=== PATIENT | male | born 1950 | race Two or more races ===

== ENCOUNTER 2016-09-14 18:17 | Inpatient (IN) | payer MEDICARE, OTHER ==
[~2016-09-14] VITALS: Ht 165.1 cm; Wt 72.7 kg
--- NOTE | 2016-09-14 18:20 | NUR ---
CALLED CODE STROKE
--- NOTE | 2016-09-14 18:23 | NUR ---
CALLED [facility] TELE STROKE LINE, EXPECTING CALL BACK FROM NEUROLOGIST DR MACKAY
--- NOTE | 2016-09-14 18:25 | NUR ---
EKG DONE AT . IV ACCESS STARTED. BLOOD DRAWN FOR LABS.
--- NOTE | 2016-09-14 18:27 | NUR ---
PT TAKEN TO CT.
--- NOTE | 2016-09-14 18:30 | NUR ---
accu ck 195
--- NOTE | 2016-09-14 18:30 | NUR ---
pt sent to ct with patt donadl
[2016-09-14 18:35] LABS: BASOPHILS % (AUTO) 0.4 % (0.0-2.0); EOSINOPHILS % (AUTO) 0.2 % (0.0-6.0); HEMATOCRIT 40 % (39-51); HEMOGLOBIN 13.4 g/dL (13.5-17.5); LYMPHOCYTES # (AUTO) 1.3 /CMM (0.8-4.8); LYMPHOCYTES % (AUTO) 11.3 % (20.0-44.0); MEAN CORPUSCULAR HEMOGLOBIN 30 PG (26.0-33.0); MEAN CORPUSCULAR HGB CONC 33 g/dl (31.0-36.0); MEAN CORPUSCULAR VOLUME 89 fL (80-96); MONOCYTES # (AUTO) 0.6 /CMM (0.1-1.30); MONOCYTES % (AUTO) 5.4 % (2.0-12.0); NEUTROPHILS # (AUTO) 9.2 /CMM (1.8-8.9); NEUTROPHILS % (AUTO) 82.7 % (43.0-81.0); PLATELET COUNT (AUTO) 227 /CMM (150-450); RDW COEFFICIENT OF VARIATION 13.5 (11.5-15.0); WHITE BLOOD COUNT (AUTO) 11.1 K/uL (4.3-11.0)
--- NOTE | 2016-09-14 18:45 | NUR ---
PAGED A PROVIDER FROM [facility]. PER CAREGIVER HE IS UNDER THEIR CARE.
--- NOTE | 2016-09-14 18:46 | NUR ---
back to bed pt still non verbal monitors applied tried to insertt de la cruz
--- NOTE | 2016-09-14 18:47 | NUR ---
SPOKE TO SOIL SCIENCE PROFESSOR JOSELO THOMPSON WITH [facility]. SHE STATES PATIENT HAD A PREVIOUS CEREBRAL INFARCTION WITH UNKNOWN DATE. PT APPEARS TO BE A FULL CODE BUT SHE WILL HAVE SOMEONE CALL BACK WITH MORE DETAILED INFORMATION
--- NOTE | 2016-09-14 18:50 | NUR ---
TELE NEURO AT BS FOR EVAL. WITH DR. EDMOND AT [facility]. PT STILL UNTESTABLE.
[2016-09-14 18:51] LABS: ALANINE AMINOTRANSFERASE 16 U/L (12-78); ALBUMIN 3.4 g/dL (3.4-5.0); ALKALINE PHOSPHATASE 69 U/L (46-116); ASPARTATE AMINOTRANSFERASE 15 U/L (15-37); BILIRUBIN,DIRECT 0.1 mg/dL (0.0-0.2); BILIRUBIN,TOTAL 0.4 mg/dL (0.2-1.0); CALCIUM, SERUM 8.9 mg/dL (8.5-10.1); CARBON DIOXIDE 26 mmol/L (21-32); CHLORIDE 105 mmol/L (98-107); CREATININE 1.3 mg/dL (0.6-1.3); GLUCOSE 195 mg/dL (74-106); POTASSIUM 4.5 mmol/L (3.5-5.1); SODIUM SERUM 141 mmol/L (136-145); TOTAL PROTEIN, SERUM 6.5 g/dL (6.4-8.2); UREA NITROGEN, BLOOD 13 mg/dL (7-18)
[2016-09-14 18:52] LABS: TROPONIN I 0.028 ng/mL (0.00-0.056)
[2016-09-14 18:54] LABS: INR 1.02 (0.87-1.13); PROTHROMBIN TIME 10.6 SECS (9.5-12.7)
--- NOTE | 2016-09-14 18:59 | NUR ---
de la cruz cathh inseted slight light pink drainage from insertion to gravity ua sent to lab
--- NOTE | 2016-09-14 19:00 | NUR ---
lpt lives in hospice new to fac was non veral after 2 hours nurses say pt is full code
--- NOTE | 2016-09-14 19:02 | NUR ---
SPOKE WITH JOSÉ MIGUEL PRINTING MACHINE OPERATOR WITH [facility], TRANSFERRED CALL TO MARGARITO ALLEN
--- NOTE | 2016-09-14 19:04 | NUR ---
[facility] [id number] [phone] was told sugar range [id number] normal for pt
[2016-09-14] MEDS ORDERED: IV NS 0.9% 1,000 ML BAG IV ONE ×2 (19:30→20:00)
[2016-09-14] MEDS ORDERED: ASPIRIN 300 MG/SUPP.RECT RC ONE ×2 (19:30→19:38)
[2016-09-14 19:42] LABS: APPEARANCE,URINE Clear (CLEAR); BILIRUBIN,URINE Negative (NEGATIVE); BLOOD, URINE Moderate Ery/uL (NEGATIVE); COLOR,URINE Yellow (YELLOW); KETONES,URINE Negative (NEGATIVE); LEUKOCYTE ESTERASE ,URINE Small (NEGATIVE); NITRITE, URINE Positive (NEGATIVE); PROTEIN,URINE 30 mg/dl (NEGATIVE); UGLUCOSE Negative (NEGATIVE)
[2016-09-14 20:10] LABS: BACTERIA,URINE Moderate /HPF (None Seen); SQUAMOUS EPITHELIAL CELL,UR Few /HPF (None Seen); URINE AMORPHOUS URATE Moderate /HPF (None Seen)
--- NOTE | 2016-09-14 20:14 | NUR ---
spoke with Kori, patient's brother, and he said to he needs to be informed when the patient is admitted and to which floor and what number to call. Kori's contact number is [phone].
--- NOTE | 2016-09-14 20:28 | NUR ---
CALLED NURSING RESOURCE CONSERVATION SPECIALIST FOR [facility] BED
[2016-09-14] MEDS ORDERED: PIPERACILLIN /TAZOBACTAM 3.375 G VIAL IV ONE (20:30)
[2016-09-14] MEDS ORDERED: PIPERACILLIN /TAZOBACTAM 3.375 G in IV D5W 50 ML IV ONE (20:30)
--- NOTE | 2016-09-14 21:08 | NUR ---
SPOKE WITH KESHIA GUERRERO AT [facility] AND SHE SAID, THEY DONT HAVE A LIST OF MEDICATIONS FOR THIS PATIENT.
--- NOTE | 2016-09-14 21:20 | NUR ---
Report given to Monet ALLEN for [facility] admission and daniella.
--- NOTE | 2016-09-14 21:24 | NUR ---
spoke to Kori, the brother, updated him with transfer info to [facility] and he said the patient is full code.
--- NOTE | 2016-09-14 21:36 | NUR ---
Transferred patient to [facility] floor via [facility] protocol, no incident noted.
--- NOTE | 2016-09-14 21:40 | NUR ---
GUERDA RN OPENING NOTES: RECEIVED PT FROM ER VIA GURNEY, OBTUNDED, RETRACTS TO PAIN; APHASIC, MAKES INCOMPREHENSIBLE SOUNDS AND UNABLE TO FOLLOW COMMANDS; ON O2 THERAPY, NOT IN APPARENT DISTRESS. ST ON MONITOR HR AT 119 BPM. ALLOWED PERMISSIVE HYPERTENSION. IV ACCESS ON RAC G18 AND LFA G18 BOTH PATENT AND INTACT. SKIN CHECK DONE VERIFIED WITH RICKY ALLEN. PHOTODOCUMENTATION FILED. NOTED WITH CARY BLEEDING FROM [facility], REPORTED FROM ER POSSIBLY D/T RODRIGUEZ INSERTION. RODRIGUEZ TO A CLOSED SYSTEM VIA GRAVITY WITH CLEAR ORANGE URINE, WITHOUT BLOOD CLOTS NOTED. UNABLE TO PERFORM NURSE BEDSIDE SWALLOW SCREEN PATIENT TOO ALTERED TO FOLLOW COMMANDS. NIHSS ASSESSMENT DONE. SCORE CHARTED. SAFETY MEASURES ENSURED AT ALL TIMES. CONTINUOUSLY MONITORED ACCORDINGLY.
[2016-09-14 21:52] VITALS: BP 169/106
--- NOTE | 2016-09-14 22:00 | NUR ---
RN NOTES: MARINA OSULLIVAN IN, SEEN AND EXAMINED PATIENT. WITH ORDERS TO DO FREQUENT NEURO ASSESSMENTS Q1H. AWARE ABOUT HYPERTENSIVE STATE, ALLOWED PERMISSIVE HYPERTENSION. PENDING ADMISSION ORDERS. TO NOTE AND CARRIED OUT. CONTINUOUSLY MONITORED PATIENT.
[2016-09-14 23:00] VITALS: BP 158/92
--- NOTE | 2016-09-14 23:00 | NUR ---
RN NOTES: SPOKE TO PATIENT;S BROTHER LEIDA, AND OBTAINED CONSENT FOR CTA OF BRAIN AND NECK AND CAROTID, TELEPHONE CONSENT VERIFIED WITH ELIEZER BUTLER RN. PER LEIDA, PATIENT SHOULD REMAIN FULL CODE UNTIL FAMILY WOULD TALK AND DECIDE. OF NOW LEIDA IS THE PERSON TO NOTIFY HE CAN BE REACHED THROUGH THIS NO. [phone]. PER LEIDA PATIENT HAS NO KNOWN ALLERGY. LEIDA UNAWARE OF PATIENT;S HOME MEDS. TO FOLLOW UP IN AM WITH CAREGIVER RE MEDS FOR MED RECON. [address] VIA ACLS TRANSPORT ASSISTED PATIENT BACK AND FORTH. PATIENT NOT IN DISTRESS DURING PROCEDURE.
[2016-09-15] VITALS: BP 158/92
[2016-09-15] MEDS ORDERED: IOHEXOL-350 100 ML VIAL IV ONE (00:05)
[2016-09-15] MEDS: BLOOD SUGAR DIAGNOSTIC 1 EACH STRIP IN SCH ×4 (00:51→17:08)
[2016-09-15] MEDS: IV NS 0.9% 1,000 ML IV PRN ×2 (00:51→11:36)
[2016-09-15] MEDS ORDERED: PIPERACILLIN /TAZOBACTAM 3.375 G VIAL IV ONE ×2 (01:15→05:47)
[2016-09-15] MEDS: PIPERACILLIN /TAZOBACTAM 3.375 G in IV D5W 50 ML IV SCH ×4 (01:17→17:10)
--- NOTE | 2016-09-15 03:30 | NUR ---
RN NOTES: CALLED [facility] SALES FACILITATOR MARINA WOODWARD NP RE CTA RESULTS. AND INFORMED HIM THAT PER RADIOLOGY MRI OF BRAIN WO CONTRAST STAT WILL NOT BE DONE UNTIL 10 AM OF TODAY. NNO AT THIS TIME.
[2016-09-15 04:00] VITALS: BP 178/88
[2016-09-15 06:36] LABS: BASOPHILS % (AUTO) 0.3 % (0.0-2.0); EOSINOPHILS % (AUTO) 0.4 % (0.0-6.0); HEMATOCRIT 35 % (39-51); HEMOGLOBIN 12.1 g/dL (13.5-17.5); LYMPHOCYTES # (AUTO) 2.2 /CMM (0.8-4.8); LYMPHOCYTES % (AUTO) 22.1 % (20.0-44.0); MEAN CORPUSCULAR HEMOGLOBIN 31 PG (26.0-33.0); MEAN CORPUSCULAR HGB CONC 34 g/dl (31.0-36.0); MEAN CORPUSCULAR VOLUME 90 fL (80-96); MONOCYTES # (AUTO) 0.8 /CMM (0.1-1.30); MONOCYTES % (AUTO) 8.4 % (2.0-12.0); NEUTROPHILS # (AUTO) 6.9 /CMM (1.8-8.9); NEUTROPHILS % (AUTO) 68.8 % (43.0-81.0); PLATELET COUNT (AUTO) 200 /CMM (150-450); RDW COEFFICIENT OF VARIATION 14.6 (11.5-15.0); RED BLOOD CELL COUNT(AUTO) 3.94 MIL/uL (4.5-6.0); WHITE BLOOD COUNT (AUTO) 10.1 K/uL (4.3-11.0)
--- NOTE | 2016-09-15 06:46 | NUR ---
TEXTED DR. CLANCY FOR MRI APPROVAL.,
--- NOTE | 2016-09-15 06:47 | NUR ---
TEXTED BACK, ON HOLD FOR NOW, HE WILL LET US KNOW.
--- NOTE | 2016-09-15 06:48 | NUR ---
RN CLOSING NOTES: PATIENT REMAINED ON BED NOT IN APPARENT DISTRESS NO FURTHER DECLINE NOTED. KEPT ON O2 THERAPY. REMAINED ST ON MONITOR ON 105 BPM. AM LABS DONE, RESULTS PENDING. ACCUCHECKS WNL. SAFETY MEASURES ENSURED. TO ENDORSE TO AM SHIFT RN.
[2016-09-15 07:00] LABS: CREATININE 0.8 mg/dL (0.6-1.3); POTASSIUM 3.7 mmol/L (3.5-5.1)
[2016-09-15 07:22] LABS: THYROID STIMULATING HORMONE 0.969 uIU/mL (0.358-3.74)
[2016-09-15] MEDS ORDERED: BLOOD SUGAR DIAGNOSTIC 1 EACH STRIP IN SCH (07:30)
[2016-09-15] MEDS: PANTOPRAZOLE 40 MG TABLET.DR PO SCH (07:30)
[2016-09-15 08:00] VITALS: BP 179/87
--- NOTE | 2016-09-15 09:30 | NUR ---
DIGITAL ARTISTRaji WOODWARD ANNUAL GIVING MANAGER AT BEDSIDE. ASKED ANNUAL GIVING MANAGER REGARDING THE FOLLOWIN) PT'S LDH WAS 82. PER ANNUAL GIVING MANAGER, WILL ORDER STATIN ONCE PT ABLE TO TAKE ORAL INTAKE (PT STILL NPO), 2) NEUROCHECKS ORDERED Q1H. PER ANNUAL GIVING MANAGER, NEUROCHECK Q1H FOR 24 HOURS ONLY FROM START OF ADMISSION, AND 3) CHEMICAL DVT PROPHYLAXIS. PER ANNUAL GIVING MANAGER, ASK DR. ROONEY WHETHER CHEMICAL PROPHYLAXIS NEEDS TO BE ORDERED ON PT. WILL CONTINUE TO MONITOR.
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
--- NOTE | 2016-09-15 10:52 | NUR ---
MRI APPROVED.PATIENT HAD SHOULDER SURGERY AND DON'T KNOW WHAT HARDWARE WAS USED IF IT'S MRI COMPATABLE. THEY (NURSE) ARE LOOKING INTO IT.
--- NOTE | 2016-09-15 11:31 | NUR ---
WOUND CARE CONSULT FOR [place] OF 12-CONTRACTS OFFICER UNABLE TO SEE AND PERFORM FULL SKIN ASSESSMENT AT THIS TIME PER NURSING PATIENT WITH EMESIS. WILL SEE AT LATER TIME PATIENT CONDITION PERMITS. ALL PRESSURE ULCER PREVENTION MEASURES NOTED TO BE IN PLACE PER CURRENT PLAN OF CARE.
[2016-09-15 12:00] VITALS: BP 120/80
--- NOTE | 2016-09-15 13:00 | NUR ---
RN NOTE- UNABLE TO OBTAIN MED RECON FOR PATIENT. CONTACT FAMILY MEMBERS AND ATTEMPTED TO CONTACT PT'S BOARD & CARE, UNSUCCESSFUL. PHARMACY AWARE. WILL CONTINUE TO MONITOR.
[2016-09-15] MEDS: IV 1/2NS 1000 ML 1,000 ML IV PRN (13:37)
[2016-09-15] MEDS: ONDANSETRON HCL/PF 4 MG/2 ML VIAL IV PRN (15:26)
[2016-09-15 16:00] VITALS: BP 195/105
[2016-09-15] MEDS: ASPIRIN 300 MG/SUPP.RECT RC SCH (17:05)
[2016-09-15 20:00] VITALS: BP 158/93
--- NOTE | 2016-09-15 20:00 | NUR ---
RN NOTE PT IN BED SUPINE WITH EYES OPEN, MUMBLES. RESPONDS TO NAME. UNABLE TO MOVE RT SIDE OF EXT'S. ABLE TO MOVE SLIGHTLY LT SIDE UPPER AND LOWER. NO DISTRESS OR DISCOMFORT NOTED. NO S/S OF PAIN NOTED. IVF 1/2 NS INFUSING AT 75 ML/HR, NO S/S OF INFILTRATION NOTED. F/C INTACT AND PATENT DRAINING YELLOWISH COLOR URINE. REPOSITION HIM Q2H. SIDE RAILS UP X 3 AND CALL LIGHT WITHIN REACH. VSS. CONTINUE TO MONITOR HIM.
[2016-09-16] VITALS (9 sets, daily range): BP systolic 108–189; BP diastolic 64–100
[2016-09-16] MEDS: BLOOD SUGAR DIAGNOSTIC 1 EACH STRIP IN SCH ×4 (00:26→18:19)
[2016-09-16] MEDS: PIPERACILLIN /TAZOBACTAM 3.375 G in IV D5W 50 ML IV SCH ×4 (00:26→18:19)
[2016-09-16] MEDS ORDERED: hydrALAZINE HCL IV 20 MG VIAL ONE (05:20)
--- NOTE | 2016-09-16 05:22 | NUR ---
RN NOTE JAZZ OSULLIVAN INFORMED PT B/P IS HIGH. NEW ORDER RECEIVED, ORDER NOTED AND CARRIED OUT.
[2016-09-16] MEDS: hydrALAZINE HCL IV 20 MG VIAL IV PRN (05:25)
--- NOTE | 2016-09-16 05:45 | NUR ---
RN NOTE PT VOMITED X 2 LIGHT BLOODY FLUIDS 100 ML APPROXIMATE. ZOFRAN 4 MG IVP GIVEN. CONTINUE TO MONITOR HIM. .
[2016-09-16] MEDS: ONDANSETRON HCL/PF 4 MG/2 ML VIAL IV PRN (05:50)
--- NOTE | 2016-09-16 06:34 | NUR ---
RN NOTE PT IN BED AWAKE. FOLLOWS COMMAND. N/V SUBSIDED. B/P ALSO CAME DOWN TO 98/42. NO FURTHER DISCOMFORT NOTED. DENIES PAIN. F/C INTACT AND PATENT DRAINING YELLOWISH COLOR URINE. ON TELE SR 88. IVF INFUSING WELL, NO S/S OF INFILTRATION NOTED. SIDE RAILS UP X 2 AND CALL LIGHT WITHIN REACH. WILL ENDORSE TO DAY SHIFT NURSE FOR CONTINUE TO CARE.
[2016-09-16 06:40] LABS: BASOPHILS % (AUTO) 0.4 % (0.0-2.0); EOSINOPHILS # (AUTO) 0.1 /CMM (0.0-0.7); EOSINOPHILS % (AUTO) 0.6 % (0.0-6.0); HEMATOCRIT 38 % (39-51); LYMPHOCYTES # (AUTO) 2.1 /CMM (0.8-4.8); LYMPHOCYTES % (AUTO) 17.4 % (20.0-44.0); MEAN CORPUSCULAR HEMOGLOBIN 31 PG (26.0-33.0); MEAN CORPUSCULAR HGB CONC 34 g/dl (31.0-36.0); MEAN CORPUSCULAR VOLUME 90 fL (80-96); MONOCYTES # (AUTO) 0.7 /CMM (0.1-1.30); MONOCYTES % (AUTO) 6.1 % (2.0-12.0); NEUTROPHILS # (AUTO) 8.9 /CMM (1.8-8.9); NEUTROPHILS % (AUTO) 75.5 % (43.0-81.0); PLATELET COUNT (AUTO) 205 /CMM (150-450); RDW COEFFICIENT OF VARIATION 14.7 (11.5-15.0); RED BLOOD CELL COUNT(AUTO) 4.19 MIL/uL (4.5-6.0); WHITE BLOOD COUNT (AUTO) 11.9 K/uL (4.3-11.0)
[2016-09-16 06:49] LABS: CALCIUM, SERUM 8.2 mg/dL (8.5-10.1); CREATININE 0.6 mg/dL (0.6-1.3); POTASSIUM 3.2 mmol/L (3.5-5.1)
[2016-09-16] MEDS: PANTOPRAZOLE 40 MG TABLET.DR PO SCH (07:30)
--- NOTE | 2016-09-16 07:47 | NUR ---
RN NOTE: (INITIAL ASSESSMENT) PATIENT RECEIVED ALERT AWAKE, FOLLOWS SIMPLE COMMANDS. ON OXYGEN 2LPM VIA NC. BREATHING PATTERN REGULAR & UNLABORED. ON TELE MONITOR SR. CONTINUE ON NUERO CHECK Q4H. IV SITE INTACT, RUNNING WITH IV FLUIDS ORDERED. NPO STATUS. F/C INTACT, DRAINING WELL WITH GRAVITY. CONTINUE TO MONITOR FOR EMESIS & BLOOD PRESSURE CLOSELY. ASPIRATION PRECAUTIONS OBSERVED. HOB ELEVATED. CALL LIGHT WITHIN REACH. WILL CONTINUE TO MONITOR.
[2016-09-16] MEDS: ASPIRIN 300 MG/SUPP.RECT RC SCH (08:30)
[2016-09-16] MEDS: IV 1/2NS 1000 ML 1,000 ML IV PRN (09:21)
[2016-09-16] MEDS: POTASSIUM CL. PREMIX PERIPHER. 50 ML IV SCH ×4 (11:58→14:58)
--- NOTE | 2016-09-16 18:00 | NUR ---
RN NOTE: ( GI CONSULT) DR. MINA MADE AWARE FOR GI CONSULT. NO NAUSEA VOMITING NOTED DURING SHIFT. ASPIRATION PRECAUTIONS OBSERVED. ABLE TO CONSUME >50% DINNER ORDERED. NO COUGH NOTED. NO S/S OF ASPIRATION NOTED.
[2016-09-16] MEDS: PANTOPRAZOLE 40 MG VIAL IV SCH (18:19)
--- NOTE | 2016-09-16 19:20 | NUR ---
RN NOTES: PATIENT ALERT AWAKE, MORE RESPONSIVE, ABLE TO NODE HEAD TO SIMPLE COMMANDS. PASS SWALLOW EVALUATION. RIGHT SIDE SEVERE WEAKNESS. LEFT ARM/LEG ABLE TO MOVE. IV FLUIDS RUNNING ORDERED. SAFETY MEASURES OBSERVED. REPORT GIVEN TO PROMOTIONS PRODUCER RN FOR CONTINUITY OF CARE.
--- NOTE | 2016-09-16 20:00 | NUR ---
RN NOTE PT IN BED AWAKE. ALERT, RESPONDS TO SIMPLE VERBAL COMMANDS. MUMBLES. RT SIDED WEAKNESS NOTED. ON TELE ST HR 106, NO DISTRESS OR DISCOMFORT NOTED. F/C INTACT AND PATENT DRAINING YELLOWISH COLOR URINE. PT KEPT ON TOUCHING THE TUBE. REMINDED HIM NOT TO DO THAT. REPOSITION HIM Q2H. KEPT HIM DRY AND CLEAN. ALL NEEDS ATTENDED. VSS. CONTINUE TO MONITOR HIM.
[2016-09-16] MEDS: ATORVASTATIN 10 MG TABLET PO SCH (22:39)
[2016-09-17] VITALS (7 sets, daily range): BP systolic 135–178; BP diastolic 70–98
[2016-09-17] MEDS: IV 1/2NS 1000 ML 1,000 ML IV PRN ×2 (00:30→17:27)
[2016-09-17] MEDS: PIPERACILLIN /TAZOBACTAM 3.375 G in IV D5W 50 ML IV SCH ×4 (00:30→17:11)
[2016-09-17] MEDS: BLOOD SUGAR DIAGNOSTIC 1 EACH STRIP IN SCH ×4 (00:40→17:11)
[2016-09-17] MEDS: hydrALAZINE HCL IV 20 MG VIAL IV PRN ×2 (00:44→21:52)
--- NOTE | 2016-09-17 02:00 | NUR ---
GUERDA RN NOTE PT KEPT ON TOUCHING THE F/C AND TRYING TO PULL IT. NOTED HEMATURIA. REMINDED PT NOT TO DO THAT. HIIDE THE TUBING. CONTINUE TO MONITOR HIM.
--- NOTE | 2016-09-17 04:45 | NUR ---
PT NOTED KEPT ON SCRATCHING SCROTUM. MINOR SCRATCHES NOTED WITH SMALL SKIN TEAR, NO BLEEDING NOTED. PICTURES TAKEN AND PLACE IT IN THE CHART. PT CONTINUE WITH HEMATURIA.
--- NOTE | 2016-09-17 05:00 | NUR ---
SMALL SKIN TEAR NOTED IN THE PT SCROTUM DUE TO SCRATCHING ON IT, NO BLEEDING NOTED, SKIN KEPT CLEAN ND DRY .Z GUARD APPLIED. PICTURES TAKEN AND PLACED IN THE CHART.
--- NOTE | 2016-09-17 06:24 | NUR ---
RN NOTE PT IN BED ASLEEP, AROUSABLE. PT ABLE TO STARTED TO MOVE RT UPPER AND LOWER EXT'S. MORE STRENGHT IN RT EXT'S. IVF INFUSING WELL, NO S/S OF INFILTRATION NOTED. FC INTACT AND PATENT DRAINING HEMATURIA. PT AT TIMES TOUCHING THE F/C. REPOSITION HIM Q2H. KEPT HIM DRY AND CLEAN. ALL NEEDS ATTENDED. SIDE RAILS UP X 3 AND CALL LIGHT WITHIN REACH. WILL ENDORSE TO DAY SHIFT NURSE FOR CONTINUE TO CARE.
[2016-09-17 06:44] LABS: BASOPHILS # (AUTO) 0.1 /CMM (0.0-0.2); BASOPHILS % (AUTO) 0.6 % (0.0-2.0); EOSINOPHILS # (AUTO) 0.2 /CMM (0.0-0.7); EOSINOPHILS % (AUTO) 1.9 % (0.0-6.0); HEMATOCRIT 37 % (39-51); HEMOGLOBIN 12.3 g/dL (13.5-17.5); LYMPHOCYTES # (AUTO) 1.8 /CMM (0.8-4.8); LYMPHOCYTES % (AUTO) 20.4 % (20.0-44.0); MEAN CORPUSCULAR HEMOGLOBIN 30 PG (26.0-33.0); MEAN CORPUSCULAR HGB CONC 34 g/dl (31.0-36.0); MEAN CORPUSCULAR VOLUME 90 fL (80-96); MONOCYTES # (AUTO) 0.7 /CMM (0.1-1.30); MONOCYTES % (AUTO) 8.5 % (2.0-12.0); NEUTROPHILS # (AUTO) 5.9 /CMM (1.8-8.9); NEUTROPHILS % (AUTO) 68.6 % (43.0-81.0); PLATELET COUNT (AUTO) 192 /CMM (150-450); RDW COEFFICIENT OF VARIATION 14.6 (11.5-15.0); RED BLOOD CELL COUNT(AUTO) 4.07 MIL/uL (4.5-6.0); WHITE BLOOD COUNT (AUTO) 8.6 K/uL (4.3-11.0)
[2016-09-17 07:22] LABS: CALCIUM, SERUM 8.1 mg/dL (8.5-10.1); CREATININE 0.7 mg/dL (0.6-1.3); MAGNESIUM 1.5 mg/dL (1.8-2.4); PHOSPHORUS 3.4 mg/dL (2.5-4.9); POTASSIUM 3.5 mmol/L (3.5-5.1)
--- NOTE | 2016-09-17 07:43 | NUR ---
GUERDA RN, INITIAL NOTES,AM RECEIVED REPORT FROM NIGHT NURSE. PT SLEEPING, EASILY AROUSED,YET DROWSY. FOLLOWS COMMANDS, RIGHT SIDED WEAKNESS NOTED. PT ON TELE, SINUS. RODRIGUEZ CATH IN PLACE, HEMATURIA NOTED, WILL CONTINUE TO MONITOR. PIVS PATENT AND INTACT, NO S/S OF INFECTION OR INFILTRATION NOTED, IV FLUIDS INFUSING ORDERED.ALL NEEDS WILL BE MET, SAFETY MEASURES TAKEN, BED IN LOW POSITION, SIDE RIALS UP, CALL LIGHT WITHIN REACH.
[2016-09-17] MEDS: ASPIRIN 300 MG/SUPP.RECT RC SCH (08:39)
[2016-09-17] MEDS: PANTOPRAZOLE 40 MG VIAL IV SCH ×2 (08:39→17:11)
[2016-09-17] MEDS: Magnesium 1GM/D5W 100ML PREMIX 100 ML IV SCH ×4 (12:32→17:24)
[2016-09-17] MEDS: ONDANSETRON HCL/PF 4 MG/2 ML VIAL IV PRN (17:11)
--- NOTE | 2016-09-17 17:30 | NUR ---
GUERDA/RN: TRANSFERRED PT TO AND BACK FROM MRI WITH ACLS GUIDELINES. PER OK TO HAVE MRI WITH RIGHT ORIF. PT TOLERATED WELL, NO DISTRESS, WILL CONTINUE TO MONITOR AND ASSESS.
--- NOTE | 2016-09-17 18:48 | NUR ---
GUERDA/RN: PT CONTINUES TO HAVE HEMATURIA, MD AWARE YET IT IS NOT IMPROVING. PT ALSO VOMITED, ZOFRAN GIVEN. CALLED DR. FRY TO INFORM OF URINE AND VOMITING, ORDERS RECEIVED FOR CONTINUOUS BLADDER IRRIGATION AND CBC Q6 HOURS. WILL FOLLOW THROUGH
--- NOTE | 2016-09-17 19:08 | NUR ---
GUERDA/RN: ENDING NOTES,AM REPORT WILL BE ENDORSED TO NIGHT NURSE FOR CONTINUATION OF CARE. PT ON NASAL CANULA, NO DISTRESS NOTED. PER MD PT STARTED ON CBI FOR HEMATURIA. EMESIS CEASED POST ZOFRAN. WILL CONTINUE TO MONITOR. VSS, PT SINUS ON TELE. SAFETY MEASURES TAKEN, BED IN LOW POSITION, SIDE RAILS UP, CALL LIGHT WITHIN REACH.
--- NOTE | 2016-09-17 19:30 | NUR ---
RN NOTES RECEIVED PT AWAKE ON BED. NO ACUTE RESP DISTRESS TOLERATED O2 2LPM VIA NC SATING 98%. DENIES PAIN. WARMTH TO TOUCH. AFEBRILE. PT FOLLOWS COMMAND AND TRIED TO COMMUNICATE NOTED RIGHT SIDE WEAKNESS. SR WITH PVC'S HR 100'S F/C DRAINED WITH HEMATURIA WITH CBI. MD AWARE. IV SITE ON LFA G 18 INTACT AND PATENT RUNNING WITH NS @ 75 CC/HR. WAITING FOR THE RESULT OF MRI. KEPT PT CLEAN AND COMFORTABLE IN BED. BED IN LOWEST POSSIBLE POSITION. WILL CONTINUE TO MONITOR.
[2016-09-17 19:55] LABS: BASOPHILS # (AUTO) 0.1 /CMM (0.0-0.2); BASOPHILS % (AUTO) 0.8 % (0.0-2.0); EOSINOPHILS # (AUTO) 0.1 /CMM (0.0-0.7); EOSINOPHILS % (AUTO) 1.7 % (0.0-6.0); HEMATOCRIT 37 % (39-51); HEMOGLOBIN 12.1 g/dL (13.5-17.5); LYMPHOCYTES # (AUTO) 1.7 /CMM (0.8-4.8); LYMPHOCYTES % (AUTO) 21.2 % (20.0-44.0); MEAN CORPUSCULAR HEMOGLOBIN 30 PG (26.0-33.0); MEAN CORPUSCULAR HGB CONC 33 g/dl (31.0-36.0); MEAN CORPUSCULAR VOLUME 89 fL (80-96); MONOCYTES # (AUTO) 0.9 /CMM (0.1-1.30); MONOCYTES % (AUTO) 11.5 % (2.0-12.0); NEUTROPHILS # (AUTO) 5.3 /CMM (1.8-8.9); NEUTROPHILS % (AUTO) 64.8 % (43.0-81.0); PLATELET COUNT (AUTO) 186 /CMM (150-450); RDW COEFFICIENT OF VARIATION 13.7 (11.5-15.0); WHITE BLOOD COUNT (AUTO) 8.1 K/uL (4.3-11.0)
[2016-09-17] MEDS: ATORVASTATIN 10 MG TABLET PO SCH (21:53)
[2016-09-18] VITALS: BP 123/87
[2016-09-18] MEDS: ONDANSETRON HCL/PF 4 MG/2 ML VIAL IV PRN (00:14)
[2016-09-18] MEDS: PIPERACILLIN /TAZOBACTAM 3.375 G in IV D5W 50 ML IV SCH ×5 (00:18→23:04)
[2016-09-18] MEDS: BLOOD SUGAR DIAGNOSTIC 1 EACH STRIP IN SCH ×4 (00:19→17:02)
[2016-09-18] MEDS: IV 1/2NS 1000 ML 1,000 ML IV PRN ×2 (03:12→22:49)
[2016-09-18 04:00] VITALS: BP 127/80
[2016-09-18 06:38] LABS: BASOPHILS % (AUTO) 0.4 % (0.0-2.0); EOSINOPHILS # (AUTO) 0.1 /CMM (0.0-0.7); EOSINOPHILS % (AUTO) 0.9 % (0.0-6.0); HEMATOCRIT 36 % (39-51); HEMOGLOBIN 12.1 g/dL (13.5-17.5); LYMPHOCYTES # (AUTO) 1.2 /CMM (0.8-4.8); LYMPHOCYTES % (AUTO) 15.1 % (20.0-44.0); MEAN CORPUSCULAR HEMOGLOBIN 31 PG (26.0-33.0); MEAN CORPUSCULAR HGB CONC 34 g/dl (31.0-36.0); MEAN CORPUSCULAR VOLUME 90 fL (80-96); MONOCYTES # (AUTO) 0.7 /CMM (0.1-1.30); NEUTROPHILS % (AUTO) 74.6 % (43.0-81.0); PLATELET COUNT (AUTO) 189 /CMM (150-450); RDW COEFFICIENT OF VARIATION 14.4 (11.5-15.0); RED BLOOD CELL COUNT(AUTO) 3.97 MIL/uL (4.5-6.0)
[2016-09-18 06:57] LABS: CALCIUM, SERUM 7.9 mg/dL (8.5-10.1); CREATININE 0.6 mg/dL (0.6-1.3); MAGNESIUM 1.9 mg/dL (1.8-2.4); PHOSPHORUS 3.5 mg/dL (2.5-4.9); POTASSIUM 3.1 mmol/L (3.5-5.1)
--- NOTE | 2016-09-18 07:03 | NUR ---
RN NOTES PT IS MORE RESPONSIVE THIS MORNING. ABLE TO MOVE HIS RIGHT HAND MORE. REMOVE IV LINE AND REPLACED WITH A NEW ONE ON LEFT HAND G 22 INTACT AND PATENT WITH GOOD BLOOD RETURN. PT HAS NO ACUTE RESP DISTRESS. KEPT PT CLEAN AND DRY. NO SIGNIFICANT CHANGE OF MENTAL STATUS OR LEVEL OF CONSCIOUSNESS. WILL ENDORSED CONTINUITY OF CARE TO AM NURSE.
--- NOTE | 2016-09-18 07:30 | NUR ---
GUERDA RN NOTE: RECEIVED PATIENT AWAKE IN BED, NONVERBAL, ABLE TO FOLLOW COMMANDS. PT ON O2 2L VIA NC WITH NO RESPIRATORY DISTRESS OR SOB NOTED. LH G 22 PATENT AND INTACT. ON TELE SR HR 94. DENIES PAIN. FC DRAINING TO GRAVITY WITH HEMATURIA NOTED ON CONT IRRIGATION. DVT PUMPS IN PLACE. CARE PLAN REVIEWED WITH PATIENT. BED LOW, LOCKED WITH CALL LIGHT WITHIN REACH. ALL NEEDS MET AND ANTICIPATED. WILL CONT TO MONITOR
--- NOTE | 2016-09-18 07:30 | NUR ---
GUERDA RN NOTE: RECEIVED PATIENT ALERT IN BED, NONVERBAL AND ABLE TO FOLLOW COMMANDS. PT ON O2 2L VIA NC WITH NO RESPIRATORY DISTRESS OR SOB NOTED. IESHA MEDINA. LFA G 18 PATENT AND INTACT. ON TELE SB HR 59. DENIES PAIN. CARE PLAN REVIEWED WITH PATIENT. BED LOW, LOCKED WITH CALL LIGHT WITHIN REACH. ALL NEEDS MET AND ANTICIPATED. WILL CONT TO MONITOR Addendum: 09/18/16 at 0903 by YENNI HUANG RN DISREGARD NOTE- WRONG PATIENT.
[2016-09-18 08:00] VITALS: BP 143/81
[2016-09-18] MEDS: PANTOPRAZOLE 40 MG VIAL IV SCH ×2 (08:08→17:01)
[2016-09-18] MEDS: ASPIRIN 300 MG/SUPP.RECT RC SCH (08:09)
[2016-09-18] MEDS ORDERED: POTASSIUM CHLORIDE 20 MEQ POWDER PACKET PO SCH (11:00)
--- NOTE | 2016-09-18 11:00 | NUR ---
RN NOTES SPOKE WITH DR FRY, PT UPDATES GIVEN, BRAIN MRI RESULTS REVIEWED BY MD. PT PASSED SWALLOW EVAL, ON PUREE WITH NECTAR THICK LIQUIDS. LATEST HEMOGLOBIN 12.1, HGB CLOSELY MONITORED FOR ANY CHANGES PER GI POSSIBLE EGD WILL BE DONE FOR ANY FURTHER DROP IN HEMOGLOBIN COUNT. LATEST POTASSIUM RESULT REPORTED TO MD K-3.1 WITH REPLACEMENT ORDER.
--- NOTE | 2016-09-18 11:15 | NUR ---
RN NOTES SPOKE WITH GI DR MINA, PER MD WILL DO EGD ONE OF THESE DAYS, NEEDS TO BE OBTAIN CALORIE COUNT TO SEE IF PT REQUIRES PEG PLACEMENT WITH EGD. ORDERS NOTED READ BACK AND CARRIED OUT. DR FRY AWARE OF THE PLAN.
[2016-09-18 11:48] LABS: INR 1.04 (0.87-1.13); PROTHROMBIN TIME 10.8 SECS (9.5-12.7)
[2016-09-18 12:00] VITALS: BP 112/69
[2016-09-18 16:00] VITALS: BP_SYST 112; BP_SYST 167; BP_DIAS 69; BP_DIAS 82
[2016-09-18] MEDS: hydrALAZINE HCL IV 20 MG VIAL IV PRN (17:01)
--- NOTE | 2016-09-18 17:03 | NUR ---
RN NOTES BP 167/82, HYDRALAZINE 10MG IV PRN GIVEN, WILL MONITOR FOR EFFECTIVENESS
--- NOTE | 2016-09-18 18:58 | NUR ---
RN NOTES PT RESTING IN BED COMFORTABLY, PT JUST FINISHED DINNER HE ATE 90% OF HIS MEAL. CALORIE COUNT STARTED, SHEET FILLED UP. NON-VERBAL, NO ACUTE DISTRESS NOTED. CURRENT BP 149/75. PT STILL ON CONTINUOS IRRIGATION THRU FC, STILL NOTED WITH HEMATURIA. IVF 1/2 NS@75ML/HR INFUSING WELL ON R HAND. PT NOTED PICKING ON IV SITE ON R ARM, KEPT ARM SLEEVE IN PLACE TO AVOID PULLING OUT LINE. PT NOTED ABLE TO MOVE L ARM AND A LITTLE BIT ON R ARM. REMINDED PT NOT TO REMOVE IV LINE. KEPT COMFORTABLE. DUE MEDS GIVEN. NEEDS ATTENDED AND MET. ENDORSED TO ELIEZER ALLEN FOR CONTINUITY OF CARE
--- NOTE | 2016-09-18 19:30 | NUR ---
RN NOTES PT AWAKE ON BED. NO ACUTE RESP DISTRESS ON RA SATING 98%. DENIES PAIN. WARMTH TO TOUCH. AFEBRILE. AOX 1-2 PT FOLLOWS COMMAND AND COMMUNICATE WITH UNCLEAR AND SLURRED SPEECH. SR WITH PVC'S HR 115 F/C DRAINED WITH PINKISH COLOR URINE WITH STREAK OF BLOOD. WITH CBI. MD AWARE. IV SITE ON RH G 22 INTACT AND PATENT RUNNING WITH NS @ 75 CC/HR. KEPT PT CLEAN AND COMFORTABLE IN BED. NEURO CHECK/ASSESSMENT RENDERED. PT ABLE TO RAISE LEFT HAND AND MOVE LEFT LEGS , RIGHT HAND AND RIGHT LEG ABLE TO MOVE WITH WEAKNESS NOTED. BED IN LOWEST POSSIBLE POSITION. KEPT PT CLEAN AND DRY. WILL CONTINUE TO MONITOR.
[2016-09-18 20:00] VITALS: BP 104/59
[2016-09-18 20:44] LABS: BASOPHILS % (AUTO) 0.4 % (0.0-2.0); EOSINOPHILS # (AUTO) 0.2 /CMM (0.0-0.7); EOSINOPHILS % (AUTO) 2.5 % (0.0-6.0); HEMATOCRIT 35 % (39-51); HEMOGLOBIN 11.6 g/dL (13.5-17.5); LYMPHOCYTES # (AUTO) 1.1 /CMM (0.8-4.8); LYMPHOCYTES % (AUTO) 16.2 % (20.0-44.0); MEAN CORPUSCULAR HEMOGLOBIN 30 PG (26.0-33.0); MEAN CORPUSCULAR HGB CONC 33 g/dl (31.0-36.0); MEAN CORPUSCULAR VOLUME 90 fL (80-96); MONOCYTES # (AUTO) 0.7 /CMM (0.1-1.30); MONOCYTES % (AUTO) 10.9 % (2.0-12.0); NEUTROPHILS # (AUTO) 4.8 /CMM (1.8-8.9); PLATELET COUNT (AUTO) 199 /CMM (150-450); RDW COEFFICIENT OF VARIATION 14.5 (11.5-15.0); RED BLOOD CELL COUNT(AUTO) 3.92 MIL/uL (4.5-6.0); WHITE BLOOD COUNT (AUTO) 6.8 K/uL (4.3-11.0)
[2016-09-18] MEDS: ATORVASTATIN 10 MG TABLET PO SCH (22:49)
[2016-09-19] VITALS: BP 145/75
[2016-09-19] MEDS: BLOOD SUGAR DIAGNOSTIC 1 EACH STRIP IN SCH ×5 (00:07→23:04)
[2016-09-19 04:00] VITALS: BP 151/76
[2016-09-19] MEDS: PIPERACILLIN /TAZOBACTAM 3.375 G in IV D5W 50 ML IV SCH ×4 (05:41→23:03)
[2016-09-19 06:43] LABS: BASOPHILS % (AUTO) 0.3 % (0.0-2.0); EOSINOPHILS # (AUTO) 0.2 /CMM (0.0-0.7); EOSINOPHILS % (AUTO) 3.3 % (0.0-6.0); HEMATOCRIT 34 % (39-51); HEMOGLOBIN 11.7 g/dL (13.5-17.5); LYMPHOCYTES # (AUTO) 1.4 /CMM (0.8-4.8); LYMPHOCYTES % (AUTO) 22.1 % (20.0-44.0); MEAN CORPUSCULAR HEMOGLOBIN 31 PG (26.0-33.0); MEAN CORPUSCULAR HGB CONC 34 g/dl (31.0-36.0); MEAN CORPUSCULAR VOLUME 90 fL (80-96); MONOCYTES # (AUTO) 0.7 /CMM (0.1-1.30); NEUTROPHILS # (AUTO) 3.9 /CMM (1.8-8.9); NEUTROPHILS % (AUTO) 62.3 % (43.0-81.0); PLATELET COUNT (AUTO) 182 /CMM (150-450); RDW COEFFICIENT OF VARIATION 14.5 (11.5-15.0); RED BLOOD CELL COUNT(AUTO) 3.81 MIL/uL (4.5-6.0); WHITE BLOOD COUNT (AUTO) 6.2 K/uL (4.3-11.0)
--- NOTE | 2016-09-19 06:56 | NUR ---
RN NOTES PT REMAINED IN STABLE CONDITION NO SIGNIFICANT CHANGES SHOWS. NO FURTHER MUSCLE WEAKNESS. ALL DUE MEDICINE TOLERATED WELL NO ASE FROM ATB. F/C WITH CBI WITH LIGHT PINK SHOWS. KEPT PT CLEAN AND DRY. NO ACTIVE BLEEDING NOTED. NO HYPERTENSION NOTED THROUGHOUT THE SHIFT. WILL ENDORSED CONTINUITY OF CARE
[2016-09-19 06:59] LABS: CALCIUM, SERUM 7.9 mg/dL (8.5-10.1); CREATININE 0.6 mg/dL (0.6-1.3); MAGNESIUM 1.7 mg/dL (1.8-2.4); PHOSPHORUS 3.4 mg/dL (2.5-4.9); POTASSIUM 3.7 mmol/L (3.5-5.1)
--- NOTE | 2016-09-19 07:38 | NUR ---
RN NOTES PT RESTING COMFORTABLY IN BED, NONVERBAL, ON 2 L NASAL CANNULA NO SOB NOTED. SR ON THE MONITOR HR 88. FOLLOWS COMMANDS ABLE TO MOVE LEFT ARM, ONLY WIGGLES FINGERS ON RIGHT ARM. CONTINUOS BLADDER IRRIGATION WITH MAGALY URINE OUTPUT. IVF RUNNING 1/2NS ON RIGHT HAND GAUGE 22. CALORIE COUNT IN PROGRESS. SIDE RAILS UP X3, CALL LIGHT WITHIN REACH, BED LOCKED AND IN LOWEST POSITION. WILL CONTINUE TO MONITOR.
[2016-09-19 08:00] VITALS: BP 130/72
--- NOTE | 2016-09-19 08:14 | NUR ---
RN NOTES PT IN BED, HOB ELEVATED. TODDLER LEAD TEACHER ASSIST PT DURING FEEDING, ASPIRATION PRECAUTION NOTED. CALORIE COUNT IN PROGRESS. PT NOTED MORE AWAKE AND ALERT TODAY, NOD HIS HEAD WHEN ASKED. PT IS TRYING TO INITIATE A CONVERSATION WITH THE NURSE, SLURRED SPEECH NOTED. ABLE TO MOVE L HAND AND WIGGLE HIS R HAND. WILL CONT TO MONITOR FOR ANY CHANGES
[2016-09-19] MEDS: PANTOPRAZOLE 40 MG VIAL IV SCH ×2 (08:36→17:06)
--- NOTE | 2016-09-19 09:30 | NUR ---
RN NOTES SPOKE WITH DR ROONEY, PT UPDATES REPORTED. MRI RESULTS REVIEWED BY MD. PER DR ROONEY PT NEEDS TO BE STARTED ON ANTI-COAGULATION ON 09/21. WILL AWARE GI DR MINA OF THE PLAN.
[2016-09-19] MEDS: ASPIRIN 300 MG/SUPP.RECT RC SCH (09:35)
--- NOTE | 2016-09-19 10:30 | NUR ---
RN NOTES SPOKE WITH BROTHER SCAR, SCAR GAVE CONSENT VIA TELEPHONE TO PROCEED WITH EGD. WITNESSED BY 2 RN'S.
--- NOTE | 2016-09-19 11:14 | NUR ---
RN NOTES SPOKE WITH DR FRY, CURRENT EVENTS REPORTED. PT UPDATES GIVEN. DR FRY AWARE PT WILL BE STARTED ON ANTI-COAGULATION ON 09/21. PER OK TO DC CONTINUOUS BLADDER IRRIGATION, NO MORE HEMATURIA NOTED. PT'S URINE MAGALY COLOR, KEPT PATENT DRAINING TO GRAVITY.
[2016-09-19] MEDS: Magnesium 1GM/D5W 100ML PREMIX 100 ML IV SCH ×2 (11:34→12:50)
--- NOTE | 2016-09-19 11:59 | NUR ---
RN NOTES CALLED STALIN MINA'S OFFICE, SPOKE WITH HEALTHCARE INTERPRETER, HAS BEEN PAGED, AWAITING FOR CALL BACK.
[2016-09-19 12:00] VITALS: BP 136/65
[2016-09-19] MEDS ORDERED: Magnesium 1 GM/2 ML VIAL IV ONE (12:30)
[2016-09-19 16:00] VITALS: BP 160/79
[2016-09-19] MEDS: IV 1/2NS 1000 ML 1,000 ML IV PRN (17:25)
--- NOTE | 2016-09-19 18:43 | NUR ---
RN NOTES PT RESTING COMFORTABLY IN BED, NO DISTRESS NOTED. NO NEUROLOGICAL CHANGES THROUGHOUT THE SHIFT. IVF RUNNING, IV SITE DRY AND INTACT. NO SIGNIFICANT CHANGES. SIDE RAILS UPX3, BED LOCKED AND IN LOWEST POSITION, CALL LIGHT WITHIN REACH.
--- NOTE | 2016-09-19 19:00 | NUR ---
DIRECT SERVICE WORKER NOTES RECEIVED PT IN BED, ALERT, NON VERBAL, NOT IN ACUTE DISTRESS, IV SITE INTACT NO S/S OF INFILTRATION. CALL LIGHT WITHIN REACH. SAFETY MEASURES IN PLACE, ON LOW BED, WILL CONTINUE TO MONITOR PT.
[2016-09-19 20:00] VITALS: BP_SYST 152; BP_SYST 174; BP_DIAS 66; BP_DIAS 84
[2016-09-19] MEDS: ATORVASTATIN 10 MG TABLET PO SCH (21:28)
[2016-09-19 21:42] LABS: BASOPHILS % (AUTO) 0.4 % (0.0-2.0); EOSINOPHILS # (AUTO) 0.2 /CMM (0.0-0.7); HEMATOCRIT 36 % (39-51); LYMPHOCYTES # (AUTO) 1.4 /CMM (0.8-4.8); LYMPHOCYTES % (AUTO) 22.1 % (20.0-44.0); MEAN CORPUSCULAR HEMOGLOBIN 30 PG (26.0-33.0); MEAN CORPUSCULAR HGB CONC 33 g/dl (31.0-36.0); MEAN CORPUSCULAR VOLUME 90 fL (80-96); MONOCYTES # (AUTO) 0.6 /CMM (0.1-1.30); NEUTROPHILS % (AUTO) 64.5 % (43.0-81.0); PLATELET COUNT (AUTO) 205 /CMM (150-450); RDW COEFFICIENT OF VARIATION 14.6 (11.5-15.0); RED BLOOD CELL COUNT(AUTO) 4.03 MIL/uL (4.5-6.0); WHITE BLOOD COUNT (AUTO) 6.1 K/uL (4.3-11.0)
[2016-09-20] VITALS (9 sets, daily range): BP systolic 140–170; BP diastolic 69–95
--- NOTE | 2016-09-20 04:05 | NUR ---
RE CHECK BP IN THE RIGHT ARM, VS IS 158/85
[2016-09-20] MEDS: hydrALAZINE HCL IV 20 MG VIAL IV PRN ×2 (05:12→16:54)
--- NOTE | 2016-09-20 05:12 | NUR ---
HOOP ROLLS OPERATOR NOTES RE CHECK VS BLOOD PRESSURE NOW IS 174/92 P 84 IV PUSH HYDRALAZINE 10 MG GIVEN BY CHARGE NURSE PER PROTOCOL PATIENT NO S/S OF ACUTE DISTRESS WILL CONTINUE TO MONITOR
[2016-09-20] MEDS: PIPERACILLIN /TAZOBACTAM 3.375 G in IV D5W 50 ML IV SCH ×3 (05:18→18:18)
[2016-09-20] MEDS: BLOOD SUGAR DIAGNOSTIC 1 EACH STRIP IN SCH ×3 (05:22→18:22)
--- NOTE | 2016-09-20 06:28 | NUR ---
RN CLOSING NOTES PT IN BED COMFORTABLY ASLEEP AND EASILY AWAKE. ALERT, NON VERBAL MUMBLES. NO S/S OF ACUTE DISTRESS NOTED. NO S/S OF STROKE NOTED. MAINTAIN NPO AT MIDNIGHT. VITAL SIGNS STABLE NOW. FOR EGD PROCEDURE TODAY. ATTACH TO TELE MONITORING ON TELE 89'S, NO DISTRESS OR DISCOMFORT NOTED. F/C INTACT DRAINING YELLOW VIA GRAVITY NO SEDIMENTS NO HEMATURIA NO CLOUDINESS NOTED. FREQUENT ROUNDING Q2H DONE FOR SAFETY. ON 02/10 NS RUNNING AT 75 CC/HR TOLERATED WELL. ON ATB WITH NO A/R NOTED. REPOSITION HIM Q2H. NO S/S OF HYPO/HYPERGLYCEMIA. IV SITE INTACT WITH NO S/S OF INFILTRATION NOTED. NEEDS ATTENDED AND ANTICIPATED. KEPT CLEAN AND DRY AND COMFORTABLE, NURSING CARE RENDERED. CALL LIGHT WITHIN EASY TO REACH. ON LOW BED TO ENSURE SAFETY. WILL ENDORSE TO THE NEXT SHIFT CONTINUITY OF CARE.
--- NOTE | 2016-09-20 07:30 | NUR ---
RN NOTES RECEIVED PATIENT IN BED ASLEEP WITH BREATHING NORMAL, EVEN AND UNLABORED. NO SOB NOTED. ON 2L O2 VIA NC, SATURATING WELL. NO ACUTE DISTRESS NOTED. TELE MONITOR REVEALS SR WITH PVC HR=88. IV R HAND 22G IS PATENT AND INTACT, RUNNING IVF PER ORDER. F/C IS PATENT AND INTACT, DRAINING WITH GRAVITY. KEPT CLEAN, DRY AND COMFORTABLE. ALL NEEDS ATTENDED. SAFETY MEASURE OBSERVED. CALL LIGHT WITH IN REACH. WILL CONT TO MONITOR.
[2016-09-20] MEDS: PANTOPRAZOLE 40 MG VIAL IV SCH ×2 (08:59→16:52)
[2016-09-20] MEDS: ASPIRIN 300 MG/SUPP.RECT RC SCH (09:00)
[2016-09-20] MEDS: IV 1/2NS 1000 ML 1,000 ML IV PRN (09:05)
[2016-09-20] MEDS: Z GUARD REMEDY 4 OZ OINT TP SCH (09:39)
--- NOTE | 2016-09-20 09:40 | NUR ---
RN NOTES PATIENT IS SCHEDULED FOR EGD TODAY. ASPIRIN HELD. DR FRY MADE AWARE.
--- NOTE | 2016-09-20 16:30 | NUR ---
RN NOTES RECEIVED CALL FROM DR MINA TO RESUME DIET ORDER. PER MD PATIENT IS SCHEDULED FOR SURGERY TOMORROW.
--- NOTE | 2016-09-20 18:54 | NUR ---
RN NOTES PATIENT ENDORSED TO NEXT SHIFT IN STABLE CONDITION WITH BREATHING NORMAL, EVEN AND UNLABORED. NO SOB NOTED. KEPT CLEAN, DRY AND COMFORTABLE. ALL NEEDS ATTENDED. SAFETY MEASURE OBSERVED. CALL LIGHT WITH IN REACH. WILL CONT TO MONITOR.
--- NOTE | 2016-09-20 19:15 | NUR ---
RN INITIAL NOTES RECEIVED PATIENT IN BED, AWAKE, ABLE TO OPEN EYES, POOR EYE TRACKING NOTED. ABLE TO FOLLOW COMMANDS. PATIENT NOTED WITH GARBLED SPEECH, ABLE TO RESPOND TO STAFF WITH 1-2 WORDS, STAFF INTERPRETATION REQUIRED. ABLE TO NOD YES/NO. NEEDS ANTICIPATED AND MET. NIHSS ASSESSMENT DONE. PATIENT ABLE TO MOVE R ARM WITH GOOD ROM NOTED, WEAKNESS NOTED AND APPRECIATED, L>R. PATIENT IS SR WITH OCCASIONAL PVCs, HR OF 98. ON 2 LPM OF O2 VIA NC, RESPIRATION IS EVEN AND UNLABORED WITH NO DISTRESS. R HAND PIV REMAINS INTACT, NO SIGNS OF INFILTRATION. IVF ORDERED. F/C INTACT AND DRAINING WELL WITH CLEAR, YELLOW URINE. PATIENT'S NEEDS ANTICIPATED AND MET. SAFETY AND COMFORT ENSURED. BED IN LOW AND LOCKED POSITION. WILL MONITOR CLOSELY.
[2016-09-20] MEDS: ATORVASTATIN 10 MG TABLET PO SCH (21:22)
[2016-09-21] VITALS (7 sets, daily range): BP systolic 143–178; BP diastolic 75–100
[2016-09-21] MEDS: hydrALAZINE HCL IV 20 MG VIAL IV PRN ×3 (00:18→23:59)
[2016-09-21] MEDS: PIPERACILLIN /TAZOBACTAM 3.375 G in IV D5W 50 ML IV SCH ×4 (00:18→17:53)
[2016-09-21] MEDS: IV 1/2NS 1000 ML 1,000 ML IV PRN ×2 (00:18→18:02)
[2016-09-21] MEDS: BLOOD SUGAR DIAGNOSTIC 1 EACH STRIP IN SCH ×5 (00:20→23:59)
--- NOTE | 2016-09-21 00:42 | NUR ---
RN NOTES PATIENT'S BS NOTED TO BE 129, NO INSULIN GIVEN PER SLIDING SCALE. PATIENT TO BE PLACED ON NPO FOR SCHEDULED EGD C/O DR. MINA. IVF ORDERED. ALL DUE MEDS GIVEN ORDERED. PATIENT NOTED WITH BP OF 174/92 AND RECHECKED TO BE 165/99, PRN HYDRALAZINE IVP GIVEN ORDERED, WILL MONITOR.
--- NOTE | 2016-09-21 01:05 | NUR ---
RN NOTES PATIENT'S BP RECHECKED, 111/64, 114. PATIENT IS SLEEPING COMFORTABLY. NOT IN ANY DISTRESS.
--- NOTE | 2016-09-21 05:27 | NUR ---
RN NOTES SV=[id number]. NO INSULIN GIVEN PER SLIDING SCALE. PATIENT TO BE ON NPO FOR EGD PROCEDURE. IVF ORDERED.
[2016-09-21 07:24] LABS: BASOPHILS % (AUTO) 0.5 % (0.0-2.0); EOSINOPHILS # (AUTO) 0.2 /CMM (0.0-0.7); EOSINOPHILS % (AUTO) 3.4 % (0.0-6.0); HEMATOCRIT 38 % (39-51); HEMOGLOBIN 12.6 g/dL (13.5-17.5); LYMPHOCYTES # (AUTO) 1.8 /CMM (0.8-4.8); LYMPHOCYTES % (AUTO) 25.3 % (20.0-44.0); MEAN CORPUSCULAR HEMOGLOBIN 30 PG (26.0-33.0); MEAN CORPUSCULAR HGB CONC 33 g/dl (31.0-36.0); MEAN CORPUSCULAR VOLUME 90 fL (80-96); MONOCYTES # (AUTO) 0.9 /CMM (0.1-1.30); MONOCYTES % (AUTO) 13.2 % (2.0-12.0); NEUTROPHILS # (AUTO) 4.1 /CMM (1.8-8.9); NEUTROPHILS % (AUTO) 57.6 % (43.0-81.0); PLATELET COUNT (AUTO) 137 /CMM (150-450); RDW COEFFICIENT OF VARIATION 14.3 (11.5-15.0); WHITE BLOOD COUNT (AUTO) 7.1 K/uL (4.3-11.0)
[2016-09-21 07:27] LABS: CALCIUM, SERUM 8.1 mg/dL (8.5-10.1); CREATININE 0.5 mg/dL (0.6-1.3); MAGNESIUM 1.7 mg/dL (1.8-2.4); PHOSPHORUS 3.5 mg/dL (2.5-4.9); POTASSIUM 3.4 mmol/L (3.5-5.1)
[2016-09-21] MEDS: PANTOPRAZOLE 40 MG VIAL IV SCH ×2 (08:12→17:53)
[2016-09-21] MEDS: ASPIRIN 300 MG/SUPP.RECT RC SCH (08:13)
[2016-09-21] MEDS: Z GUARD REMEDY 4 OZ OINT TP SCH (08:13)
--- NOTE | 2016-09-21 09:30 | NUR ---
RN NOTES PATIENT IS SCHEDULED FOR EGD TODAY. ASPIRIN HELD. DR BELL MADE AWARE.
[2016-09-21] MEDS ORDERED: POTASSIUM CL. PREMIX PERIPHER. 50 ML IV SCH (10:34)
[2016-09-21] MEDS: Magnesium 1GM/D5W 100ML PREMIX 100 ML IV SCH ×2 (11:05→12:18)
[2016-09-21] MEDS ORDERED: POTASSIUM CHLORIDE 20 MEQ POWDER PACKET GT ONE (11:30)
--- NOTE | 2016-09-21 19:40 | NUR ---
RN INITIAL NOTES REPORT WAS RECEIVED FROM IVONNE. PT IS LAYING IN BED A/C X2 ABLE TO FOLLOW COMMANDS AND COOPERATIVE. PT ON NC 2L TOLERATING WELL. NO SIGNS OF SOB OR DISTRESS. TELE MONITOR SHOWING SR 96. IV ACCESS INTACT AND PATENT RUNNING WITH NS @ 75 ML/HR. F//C IS INTACT AND PATENT DRAINING WELL. BED IS IN LOW AND LOCKED POSITION, CALL LIGHT WITHIN REACH. WILL CONTINUE TO MONITOR PT.
[2016-09-21] MEDS: ATORVASTATIN 10 MG TABLET PO SCH (21:24)
[2016-09-22] VITALS (7 sets, daily range): BP systolic 142–167; BP diastolic 73–97
[2016-09-22] MEDS: PIPERACILLIN /TAZOBACTAM 3.375 G in IV D5W 50 ML IV SCH ×4 (05:19→12:12)
[2016-09-22] MEDS: BLOOD SUGAR DIAGNOSTIC 1 EACH STRIP IN SCH ×2 (05:19→12:08)
[2016-09-22] MEDS: IV 1/2NS 1000 ML 1,000 ML IV PRN (05:31)
--- NOTE | 2016-09-22 06:24 | NUR ---
RN CLOSING NOTES PT IS SLEEPING IN BED. ALERT AND ABLE TO FOLLOW COMMANDS. NO SIGNS OR SOB OR DISTRESS. IV ACCESS INTACT AND PATENT RUNNING WITH 0.45 NS AT 75 ML/ HR. ALL NEEDS WERE ANTICIPATED AND MET. BED IS IN LOW AND LOCKED POSITION. WILL ENDORSE TO DAYSHIFT
--- NOTE | 2016-09-22 07:15 | NUR ---
MASTER CARPENTER NOTES PATIENT ALERT AND ORIENTED, UNCLEAR SPEECH, ABLE TO NOD, NO DISTRESS NOTED, DENIES PAIN OR DISCOMFORT AT THIS TIME, PIV PATENT AND INTACT, NEEDS ATTENDED AND ANTICIPATED, SIDERAILS X2 UP, LOW BED AND LOCKED, BED ALARM ON, CALL LIGHT WITHIN REACH, WILL CONTINUE TO MONITOR.
[2016-09-22] MEDS: PANTOPRAZOLE 40 MG VIAL IV SCH ×2 (08:35→17:39)
[2016-09-22] MEDS: ASPIRIN 300 MG/SUPP.RECT RC SCH (08:35)
[2016-09-22] MEDS: Z GUARD REMEDY 4 OZ OINT TP SCH (08:36)
[2016-09-22] MEDS: hydrALAZINE HCL IV 20 MG VIAL IV PRN (12:33)
[2016-09-22] MEDS ORDERED: ASPI81TA2 PO (15:13)
[2016-09-22] MEDS ORDERED: ATOR10TA PO (15:13)
[2016-09-22] MEDS ORDERED: hydrALAZINE HCL 25 MG TABLET PO SCH (17:30)
--- NOTE | 2016-09-22 17:30 | NUR ---
VOCATIONAL NURSE NOTES SBP > [address] BELL, RECEIVED NEW ORDER TO GIVE HYDRALAZINE 25MG PO ONCE, ORDER NOTED AND CARRIED OUT.
--- NOTE | 2016-09-22 17:49 | NUR ---
ACADEMIC ADVISOR NOTE PATIENT ALERT AND ORIENTED, SLURRED SPEECH, NO DISTRESS NOTED, BREATHING EVEN AND UNLABORED, NO SOB, SKIN ASSESSMENT DONE, NO CHANGES, PHOTOS TAKEN WITHIN 24 HOURS, SKIN REMAINS TO BE INTACT, PIV REMOVED, DISCHARGE INSTRUCTIONS GIVEN TO PATIENT AND RN KOREY AT [facility], PATIENT UNABLE TO SIGN, WITNESSED BY ANOTHER RN GAUDENCIO, ALL NEEDS ATTENDED, LEFT THE FACILITY VIA AMBULANCE, IN STABLE CONDITION. Addendum: 09/22/16 at 1803 by MEME CONNER RN ADDENDUM: BELONGINGS RECONCILED AND COMPLETE, ALL DISCHARGE PAPERWORKS GIVEN TO EMT.
== END 2016-09-22 17:43 | DRG 871 ==
LOC: ER 18:21 → TELE-TD 21:03 → TELE1 09-19 13:09
PROVIDERS: ADMIT Nurse Practitioner Acute Care; ATTEND Nurse Practitioner Acute Care
PROC: 0DB68ZX Excision of Stomach, Via Natural or Artificial Opening Endoscopic, Diagnostic (ICD-10-PCS; principal; 2016-09-21 09:35)
DX: A41.9 Sepsis, unspecified organism (principal); I63.441 Cerebral infarction due to embolism of right cerebellar artery; E87.2 Acidosis; I69.354 Hemiplegia and hemiparesis following cerebral infarction affecting left non-dominant side; E11.65 Type 2 diabetes mellitus with hyperglycemia; R13.10 Dysphagia, unspecified; N39.0 Urinary tract infection, site not specified; R47.01 Aphasia; R56.9 Unspecified convulsions; R65.20 Severe sepsis without septic shock; D64.9 Anemia, unspecified; E87.6 Hypokalemia; G80.9 Cerebral palsy, unspecified; I10 Essential (primary) hypertension; I73.9 Peripheral vascular disease, unspecified; K29.70 Gastritis, unspecified, without bleeding
CPT/HCPCS: 36415; 70450-TC; 70496-TC; 70498-TC; 70551-TC; 71010-TC; 80048-TC; 80061-TC; 80076-TC; 80305; 81000-TC; 82962-TC; 83605-TC; 83735-TC; 84100-TC; 84443-TC; 84484-TC; 85025-TC; 85610-TC; 85730-TC; 86850-TC; 87040-TC; 87081-TC; 87086-TC; 88305-TC; 88313-TC; 88342; 92507-TC; 92521; 92526; 92611-TC; 93307-TC; 95819-TC; 97001-TC; 97110-TC; 97112-TC; 97530-TC; 97535-TC; A4606; C9113; J0360; J2405; J2543; J2704; J3475; J3480; J3490; J7030; J7060; Q9967; Z7610